=== PATIENT | female | born 1975 | race Caucasian/White ===

== ENCOUNTER 2019-02-09 08:00 | Day surgery (SDC) | payer OTHER ==
[~2019-02-09] VITALS: Ht 167.6 cm; Wt 73.5 kg
[~2019-02-09 08:00] MED LIST: CEFAZOLIN SOD 2 GM in D5W 50 ML IV ONE
[2019-02-09] MEDS ORDERED: POLYMYXIN 500,000/BACIT.10,000 UNITS in NS IRR 1 L IR ONE (14:14)
[2019-02-09] MEDS ORDERED: ONDANSETRON HCL 4 MG/2 ML VIAL IVP ONE ×2 (14:30→18:45)
[2019-02-09] MEDS ORDERED: MIDAZOLAM HCL 5 MG/5 ML VIAL IVP ONE (14:30)
[2019-02-09] MEDS ORDERED: NS IRRIG SOLN 1000 ML IR ONE (14:30)
[2019-02-09] MEDS ORDERED: ROPIVACAINE HCL/PF 0.2% EPIDURAL 200 ML PLAST..BAG EP ONE (14:30)
[2019-02-09] MEDS ORDERED: BUPIVACAINE /PF 0.5% 30 ML VIAL INJ ONE (14:30)
[2019-02-09] MEDS ORDERED: fentaNYL CITRATE 250 MCG/5 ML AMP IV ONE (14:30)
[2019-02-09] MEDS ORDERED: PROPOFOL 200MG/ 20ML VIAL (DIPRIVAN) IV ONE (14:30)
[2019-02-09] MEDS ORDERED: WATER FOR IRRIGATION,STERILE 1,000 ML IRRIG.SOLN IR ONE ×2 (14:30)
[2019-02-09] MEDS ORDERED: ROCURONIUM BROMIDE 10 MG/ML (ZEMURON) IV ONE (14:30)
[2019-02-09] MEDS ORDERED: SEVOFLURANE 15 MIN GAS INH ONE (14:30)
[2019-02-09] MEDS ORDERED: BUPIVACAINE /EPINEPHRINE/PF 0.25% 30 ML VIAL INJ ONE (14:30)
[2019-02-09] MEDS ORDERED: DEXTROSE 50% JECT 50 ML DISP.SYRIN IVP ONE (14:30)
[2019-02-09] MEDS ORDERED: LR 1,000 ML IV SCH (15:18)
[2019-02-09] MEDS ORDERED: HYDROmorphone 2 MG/ML VIAL IVP PRN ×2 (15:30→18:45)
[2019-02-09] MEDS ORDERED: HYDROmorphone 1 MG INJ. 1 MG/ML AMPUL IVP PRN ×2 (15:30)
[2019-02-09] MEDS ORDERED: HYDROmorphone 1 MG INJ. 1 MG/ML AMPUL ONE (18:21)
[2019-02-09] MEDS ORDERED: ONDANSETRON HCL 4 MG/2 ML VIAL ONE (18:24)
[2019-02-09] MEDS ORDERED: METOCLOPRAMIDE HCL 10 MG/2 ML VIAL IVP ONE (18:43)
[2019-02-09] MEDS ORDERED: ONDANSETRON HCL 4 MG/2 ML VIAL IVP PRN (18:45)
[2019-02-09] MEDS ORDERED: MORPHINE SULFATE 10 MG/ML VIAL IVP PRN (18:45)
[2019-02-09] MEDS ORDERED: HYDROcodone/ACETAMIN 5-325 MG TAB (NORCO/ VICODIN) PO PRN (18:45)
[2019-02-09] MEDS ORDERED: METOCLOPRAMIDE HCL 10 MG/2 ML VIAL ONE (18:54)
--- NOTE | 2019-02-09 19:45 | NUR ---
ARRIVED FROM OR Received report from FLOR Gee. Patient awake AOx4, at bedside. Post Robot assisted laparoscopy- supracervical hysterectomy. No signs of respiratory distress. HOB raised. Patient verbalized 3/10 abdominal pain, patient received Dilaudid in OR approximately around 1810 per Olive RN. Patient verbalized feeling nauseated, per RN patient received Zofran in OR at 1845. Patient IV infusing well, patency noted. Levine catheter attached and secured, draining by gravity. call light within reach. Patient educated to use call light when assistance is needed. Patient verbalized understanding. Safety precautions in place. Bed locked and lowest position. Will continue to monitor patient.
[2019-02-09 20:00] VITALS: BP_SYST 116
--- NOTE | 2019-02-09 20:56 | NUR ---
MED PASS Due medication given at this time. Patient verbalized feeling much better. Verbalized ''I don't like to received any pain medication tonight'' Patient educated on purpose and benefits of pain medication. Patient verbalized understanding but patient still refused to receive any pain medication. safety precautions in place. Vital signs are taken and recorded at bedside. Vital signs stable at this time. Will continue to monitor patient.
[2019-02-09] MEDS ORDERED: SIMETHICONE 80 MG TAB.CHEW PO SCH (21:00)
--- NOTE | 2019-02-09 21:15 | NUR ---
MD ROUNDS Dr. Newton came and see the patient. MD verbalized her will put new orders for patient. MD verbalized that patient will be an outpatient and will be discharge tomorrow when patient is comfortable.
--- NOTE | 2019-02-09 22:00 | NUR ---
DR BARRETT AT THE BEDSIDE TO SEE THE PATIENT. STATED TO DISCHARGE THE PATIENT IN THE MORNING IF THE PATIENT IS STABLE. PRIMARY RN MADE AWARE.
[2019-02-09] MEDS ORDERED: OXYCODONE/ACETAMINOPHEN *10*mg/325 mg TABLET PO PRN (22:15)
--- NOTE | 2019-02-09 23:14 | NUR ---
XANAX Patient received Xanax 1mg PO per MD ordered. Patient has no signs of respiratory distress and discomfort noted. Vital signs taken and recorded. Safety precautions in place. Will continue to monitor patient.
[2019-02-09] MEDS ORDERED: ALPRAZolam 0.25 MG TABLET ONE (23:24)
[2019-02-10] MEDS ORDERED: ALPRAZolam 0.25 MG TABLET PO SCH
--- NOTE | 2019-02-10 00:48 | NUR ---
RN ROUNDS Patient asleep at this time. No signs of respiratory distress and discomfort noted. IVF infusing well, patency noted. Levine catheter is attached and secured, draining by gravity. Safety precautions in place. Will continue to monitor patient.
[2019-02-10] MEDS: METOCLOPRAMIDE HCL 10 MG/2 ML VIAL IVP SCH ×2 (03:20→05:25)
--- NOTE | 2019-02-10 03:52 | NUR ---
AMBULATES/ Refused Pain Medication Patient verbalized severe 9/10 chest pain ''patient verbalized due to gas'' RN offered pain medication, patient refused at this time. Patient asked to ambulate instead. patient ambulates in the luis ways and verbalized ''I'm feeling better''. patient educated on purpose and benefits of pain medication. Patient still refused. Patient has no signs of respiratory distress. Vital signs stable at this time. Will continue to monitor patient.
--- NOTE | 2019-02-10 05:00 | NUR ---
VILLALOBOS CATHETER REMOVED/VOIDED Villalobos catheter removed at this time. Patient assisted to bathroom, patient voided. Patient safely assisted back to bed. No signs of respiratory distress noted. Verbalized upper chest pain but refused pain medication. Patient educated on purpose and benefits of pain medication but patient still refused. Will continue to monitor patient.
[2019-02-10 05:40] VITALS: BP_SYST 116
--- NOTE | 2019-02-10 06:00 | NUR ---
BLADDER SCAN 275/ VOIDED Patient bladder scan result was 275ml. Patient assisted to bathroom and patient voided. Vital signs taken. Patients vital signs stable. Will prepare for discharge.
--- NOTE | 2019-02-10 07:00 | NUR ---
Endorse to Yecenia RN, patient stable, IV catheter removed, catheter is intact. Waiting for family to picked up. Vital signs stable. Patient voided and assisted safely back to bed
--- NOTE | 2019-02-10 07:13 | NUR ---
Initial notes: Received patient awake, alert and oriented. Stable. Waiting for family to pick her up.
--- NOTE | 2019-02-10 07:45 | NUR ---
D/C Patient Patient given medication reconciliation form and D/C instructions. Exit Care provided. Patient verbalized understanding. MD discussed with patient the results and treatment provided. Ambulatory with steady gait for discharge to home. Patient in stable condition, ID band removed. IV catheter removed, intact and dressing applied, no active bleeding.Patient left with Q pump. Education provided. Patient educated on pain management. All belongings sent with patient.
== END 2019-02-10 07:40 | disposition home or self-care (01) ==
LOC: SDS 08:00 → SMU 08:00 → SDS 02-10 07:40
PROVIDERS: ATTEND Specialist
DX: N39.3 Stress incontinence (female) (male) (principal); N92.0 Excessive and frequent menstruation with regular cycle; D25.9 Leiomyoma of uterus, unspecified; N85.2 Hypertrophy of uterus; N73.6 Female pelvic peritoneal adhesions (postinfective)
CPT/HCPCS: 49204; 57288; 58552; 58662; 88307; C1727; C1771; J0690; J1170; J2250; J2405; J2704; J2765 ×2; J3010; J3490 ×2; J7060; J7120; E0190